=== PATIENT | male | born 1990 ===

== ENCOUNTER 2018-06-01 19:25 | Emergency (ER) | payer MEDICAID, OTHER ==
[2018-06-01 19:40] VITALS: BP 133/77; PULSE 94; RESP 20; TEMP 100.7; O2SAT 96
--- NOTE | 2018-06-01 20:06 | C.PDOC ---
History Of Present Illness 28 year old male presents to the ED for evaluation of fever, intermittent headaches, generalized body aches, malaise, and dry cough which began yesterday. Patient denies severe headache, dizziness, neck pain, drooling, dysphagia, dyspnea, CP, SOB, wheezing, nausea, vomiting, diarrhea, urinary complaints, denies recent travel. Ambulatory, not in any apparent distress. Time Seen by Provider: 06/01/18 19:51 Chief Complaint (Nursing): Flu-like Symptoms History Per: Patient History/Exam Limitations: no limitations Onset/Duration Of Symptoms: Hrs, Intermittent Episodes Current Symptoms Are (Timing): Still Present Location Of Pain: Diffuse Myalgias, Headache Associated Symptoms: Fever, Cough. denies: Sore Throat, Sputum, Nausea, Vomiting, Diarrhea Ear Symptoms: Bilateral: None Additional History Per: Patient Past Medical History Reviewed: Historical Data, Nursing Documentation, Vital Signs Vital Signs: Last Vital Signs Temp 100.7 F H 06/01/18 19:36 Pulse 94 H 06/01/18 19:36 Resp 20 06/01/18 19:36 BP 133/77 06/01/18 19:36 Pulse Ox 96 06/01/18 19:36 - Medical History PMH: No Chronic Diseases Surgical History: No Surg Hx Family History: States: Unknown Family Hx - Social History Hx Tobacco Use: No Hx Alcohol Use: Yes Hx Substance Use: No - Immunization History Hx Tetanus Toxoid Vaccination: No Hx Influenza Vaccination: No Hx Pneumococcal Vaccination: No Review Of Systems Constitutional: Positive for: Fever ENT: Negative for: Ear Pain, Throat Pain Respiratory: Positive for: Cough. Negative for: Sputum Gastrointestinal: Negative for: Nausea, Vomiting, Diarrhea Genitourinary: Negative for: Dysuria, Frequency, Hematuria Musculoskeletal: Positive for: Other (generalized body aches, malaise) Physical Exam - Physical Exam Appears: Well, Non-toxic, No Acute Distress Skin: Normal Color, Warm, Dry, No Rash Head: Normacephalic Eye(s): bilateral: PERRL Ear(s): Bilateral: Normal Nose: No Flaring, Discharge (scant clear) Oral Mucosa: Moist, No Drooling Tongue: Normal Appearing Lips: Normal Appearing Throat: Erythema (mild B/L), No Exudate, No Drooling Neck: Trachea Midline, Supple Cardiovascular: Rhythm Regular, No Murmur, No JVD Respiratory: No Decreased Breath Sounds, No Accessory Muscle Use, No Stridor, No Wheezing Gastrointestinal/Abdominal: Bowel Sounds, Soft, No Tenderness, No Distention, No Guarding Back: No CVA Tenderness Extremity: Normal ROM, No Deformity, No Swelling Neurological/Psych: Oriented x3, Normal Speech ED Course And Treatment O2 Sat by Pulse Oximetry: 96 (on RA ) Pulse Ox Interpretation: Normal Progress Note: Tylenol PO and Tamiflu PO given. On re-eval, pt is afebrile, hemodynamicaly stable. Non-toxic. AMbulatoyr in ED with stable gait. PulseOx 96% rA. ENT: no acute findings. neck: SUpple, (-) meningeal sign. Lungs: CTA B/L, BS equal B/L. CVS: (+)S1S2, reg. Abd: benign. Back: (-) CVA tenderness. Pt has clinical findings c/w Influenza-like illness. Pt advised and ref. to f/u with PMD in 2-3 days for re-eval. return if any new changes. Disposition Counseled Patient/Family Regarding: Diagnosis, Need For Followup, Rx Given - Disposition Referrals: Clari Ellis MD [Staff Provider] - Disposition: HOME/ ROUTINE Disposition Time: 20:03 Condition: STABLE Additional Instructions: Encourage fluids take medication as prescribed Cough syrup as need Follow up with PMD in2 -3 days for re-evaluation. return if any new changes. 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 - Scribe Statement The provider has reviewed the documentation as recorded by the Scribe (Nelli Valenzuela) All medical record entries made by the Scribe were at my direction and personally dictated by me. I have reviewed the chart and agree that the record accurately reflects my personal performance of the history, physical exam, medical decision making, and the department course for this patient. I have also personally directed, reviewed, and agree with the discharge instructions and disposition.
== END 2018-06-01 20:26 | disposition home or self-care (01) ==
LOC: C.ER 19:25
DX: J11.1 Influenza due to unidentified influenza virus with other respiratory manifestations (principal)

== ENCOUNTER 2018-06-05 18:12 | Emergency (ER) | payer MEDICAID ==
[2018-06-05 18:25] VITALS: BMI 30.1
[2018-06-05 18:54] LABS: SQUAMOUS EPITHIAL < 1 /hpf (0-5); URINE BACTERIA OCC (<OCC); URINE BILIRUBIN NEGATIVE (NEGATIVE); URINE BLOOD 1+ (NEGATIVE); URINE CLARITY Clear (Clear); URINE COLOR Yellow (YELLOW); URINE GLUCOSE (UA) NORMAL (Normal); URINE LEUKOCYTE ESTERASE NEG Leu/uL (Negative); URINE PROTEIN NEGATIVE (NEGATIVE); URINE UROBILINOGEN NORMAL mg/dL (0.2-1.0)
[2018-06-05] MEDS ORDERED: Sodium Chloride 0.9% 1,000 ML IV ONE (19:06)
[2018-06-05] MEDS ORDERED: Iohexol 240 (50 ml) ONE (19:16)
[2018-06-05] MEDS ORDERED: Sodium Chloride 0.9% 1,000 ML ONE (19:16)
[2018-06-05 19:17] LABS: BASO % 0.2 % (0.0-2.0); EOS % 0.9 % (0.0-4.0); HEMOGLOBIN 13.5 g/dL (12.0-18.0); LYMPH # 1.2 K/uL (1.0-4.3); LYMPH % 27.5 % (20.0-40.0); MEAN CELL VOLUME 77.6 fL (80.0-94.0); MEAN CORPUSCULAR HEMOGLOBIN 24.8 pg (27.0-31.0); MEAN CORPUSCULAR HGB CONC 31.9 g/dL (33.0-37.0); MEAN PLATELET VOLUME 8.7 fL (7.2-11.7); MONO # 0.3 K/uL (0.0-0.8); MONO % 6.2 % (0.0-10.0); NEUT # 2.9 K/uL (1.8-7.0); NEUT % 65.2 % (50.0-75.0); RBC 5.44 Mil/uL (4.40-5.90); RED CELL DISTRIBUTION WIDTH 14.8 % (11.5-14.5); WHITE BLOOD COUNT 4.4 K/uL (4.8-10.8)
[2018-06-05] MEDS ORDERED: Iohexol 240 (50 ml) PO ONE (19:17)
--- NOTE | 2018-06-05 19:28 | C.PDOC ---
History Of Present Illness 28 year old male with family Hx of kidney stones presents to the ER with stabbing right flank pain since 0500 with nausea. Patient has no abdominal pain but notes the pain radiates from his back to his groin, no testicular pain. He n otes some dysuria but no rash, penile discharge, Hx of unsafe sex, or Hx of STD. Patient also denies fever, chills, night sweats, constipation, diarrhea, or dark/bloody stools. 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 Time Seen by Provider: 06/05/18 18:48 Chief Complaint (Nursing): Male Genitourinary History Per: Patient History/Exam Limitations: no limitations Onset/Duration Of Symptoms: Hrs Current Symptoms Are (Timing): Still Present Recent travel outside of the [place]: No Past Medical History Reviewed: Historical Data, Nursing Documentation, Vital Signs Vital Signs: Last Vital Signs Temp 98.2 F 06/05/18 18:25 Pulse 77 06/05/18 18:25 Resp 18 06/05/18 18:25 BP 135/85 06/05/18 18:25 Pulse Ox 97 06/05/18 18:25 Family History: States: Unknown Family Hx - Social History Hx Tobacco Use: No Hx Alcohol Use: No Hx Substance Use: No - Immunization History Hx Tetanus Toxoid Vaccination: No Hx Influenza Vaccination: No Hx Pneumococcal Vaccination: No Review Of Systems Except As Marked, All Systems Reviewed And Found Negative. Musculoskeletal: Positive for: Other (Flank pain) Physical Exam - Physical Exam Appears: Non-toxic Skin: Normal Color, Warm, Dry Head: Atraumatic, Normacephalic Eye(s): bilateral: Normal Inspection Oral Mucosa: Moist Neck: Normal, Supple Chest: Symmetrical, No Tenderness Cardiovascular: Rhythm Regular Respiratory: Normal Breath Sounds, No Rales, No Rhonchi, No Wheezing Gastrointestinal/Abdominal: Soft, No Tenderness Back: Other (Mildly tender right flank) Extremity: Normal ROM (x4) Neurological/Psych: Oriented x3, Normal Speech ED Course And Treatment - Laboratory Results Result Diagrams: 06/05/18 19:13 06/05/18 19:13 Lab Results: Urine Color Yellow (YELLOW) 06/05/18 18:43 Urine Clarity Clear (Clear) 06/05/18 18:43 Urine pH 5.0 (5.0-8.0) 06/05/18 18:43 Ur Specific [place] 1.015 (1.003-1.030) 06/05/18 18:43 Urine Protein Negative mg/dL (NEGATIVE) 06/05/18 18:43 Urine Glucose (UA) Normal mg/dL (Normal) 06/05/18 18:43 Urine Ketones Negative mg/dL (NEGATIVE) 06/05/18 18:43 Urine Blood 1+ (NEGATIVE) H 06/05/18 18:43 Urine Nitrate Negative (NEGATIVE) 06/05/18 18:43 Urine Bilirubin Negative (NEGATIVE) 06/05/18 18:43 Urine Urobilinogen Normal mg/dL (0.2-1.0) 06/05/18 18:43 Ur Leukocyte Esterase Neg [place]/uL (Negative) 06/05/18 18:43 Urine WBC (Auto) 1 /hpf (0-5) 06/05/18 18:43 Urine RBC (Auto) 7 /hpf (0-3) H 06/05/18 18:43 Ur Squamous Epith Cells < 1 /hpf (0-5) 06/05/18 18:43 Urine Bacteria Occ (<OCC) H 06/05/18 18:43 O2 Sat by Pulse Oximetry: 97 (Room air) Pulse Ox Interpretation: Normal Medical Decision Making Medical Decision Making: Differential: UTI vs Kidney stone. 2137 3.5 cm bladder stone appendix unremarkable no UTI labs unremarkable pain improved per pt, given f/u w/ urology and return indications. Disposition - Disposition Referrals: Lashonda Kim [Outside] [facility] [Outside] [facility] [Outside] Divya Mireles MD [Staff Provider] - Disposition: HOME/ ROUTINE Disposition Time: 21:36 Condition: GOOD Additional Instructions: TAKE MOTRIN OR TYLENOL FOR CONTINUED PAIN. TAKE WRITTEN ON BOTTLE. STraIN YOUR URINE AND BRING STONE TO SEE UROLOGIST Instructions: Renal Colic (DC), Flank Pain (DC), How to Strain Your Urine Forms: Lashonda Tomlin (Chinese) - Clinical Impression Clinical Impression: Kidney stone, Bladder stone - Scribe Statement The provider has reviewed the documentation as recorded by the Scribe Heri Ramos All medical record entries made by the Scribe were at my direction and personally dictated by me. I have reviewed the chart and agree that the record accurately reflects my personal performance of the history, physical exam, medical decision making, and the department course for this patient. I have also personally directed, reviewed, and agree with the discharge instructions and disposition.
[2018-06-05 19:40] LABS: ALB/GLOB RATIO 1.6 (1.0-2.1); ALBUMIN 4.2 g/dL (3.5-5.0); ALT/SGPT 40 U/L (21-72); AST/SGOT 34 U/L (17-59); BLOOD UREA NITROGEN 19 mg/dL (9-20); CALCIUM 8.6 mg/dl (8.6-10.4); GFR NON-AFRICAN AMERICAN > 60; LIPASE 46 U/L (23-300)
[2018-06-05 21:45] VITALS: BP 129/79; PULSE 78; RESP 16; TEMP 98.3; O2SAT 99
--- NOTE | 2018-06-06 10:24 | CT ---
CT abdomen and pelvis History: Right flank pain. COMPARISON: None available. TECHNIQUE: Multiple contiguous axial images were performed through the abdomen and pelvis without the use of intravenous contrast. Subsequently, sagittal and coronal reformatted images were obtained. This CT exam was performed using one or more of the following dose reduction techniques: Automated exposure control, adjustment of the mA and/or kV according to patient size, and/or use of iterative reconstruction technique. Findings: Lung bases are clear. No pleural or pericardial effusion. Mild hepatomegaly. Gallbladder is preserved. Spleen is preserved. Adrenal glands are preserved. Pancreas is preserved. Upper abdominal bowel is preserved. Right kidney: Mild right renal hydroureteronephrosis. At the posterior aspect of the urinary bladder there is a 4 millimeter calculus which may represent a passed right ureteral calculus. Left Kidney: No calculi or hydronephrosis. Distended urinary bladder. 4 millimeter calculus at the posterior aspect of the urinary bladder. Prostate and seminal vesicles are preserved. Underdistention and or mild thickening of the sigmoid colon and rectum. Under distended descending colon. Appendix is partially imaged, and within normal limits. Few shotty para-aortic and inguinal lymph nodes. Few shotty mesenteric lymph nodes. Degenerative changes in the spine. Bone island in the left proximal femur. Impression: Mild right renal hydroureteronephrosis. At the posterior aspect of the urinary bladder, there is a 4 millimeter calculus which may represent a passed right ureteral calculus. Additional findings as above. A preliminary report was generated at 9:21 p.m. on 06/05/[address] Dagoberto Boswell from [facility].
== END 2018-06-05 21:44 | disposition home or self-care (01) ==
LOC: C.ER 18:12
DX: N20.0 Calculus of kidney (principal); N21.0 Calculus in bladder
CPT/HCPCS: 74176; 80053; 81001; 82550; 83690; 85025; 99285; J7030; Q9966